=== PATIENT | female | born 1990 | race Caucasian/White ===

== ENCOUNTER → 2019-05-19 14:24 | Observation (INO) ==
[2019-05-19 12:58] LABS: Basophils % 0.2 %; Eosinophils # 0.1 K/mcL (0.0-0.6); Eosinophils % 0.9 %; Hematocrit 37.6 % (35.3-44.9); Hemoglobin 12.9 g/dL (11.5-15.4); Immature Granulocytes % 0.5 % (0-4); Lymphocytes # 1.8 K/mcL (0.6-4.6); Lymphocytes % 17.6 %; Mean Corpuscular HGB Conc 34.3 g/dL (31.6-35.5); Mean Corpuscular Volume 90.4 fL (83.0-100.0); Mean Platelet Volume 11.5 fL (9.4-12.4); Monocytes # 0.5 K/mcL (0.0-1.3); Monocytes % 5.3 %; Neutrophils # 7.5 K/mcL (1.6-8.9); Platelet Count 205 K/mcL (140-400); Red Blood Count 4.16 M/mcL (3.82-4.97); Red Cell Distribution Width 12.8 % (11.5-14.5); Segmented Neutrophils % 75.5 %; White Blood Count 9.9 K/mcL (4.3-11.1)
[2019-05-19 13:16] LABS: Alanine Aminotransferase 10 Units/L (7-52); Aspartate Amino Transferase 13 Units/L (13-39); BUN/Creatinine Ratio 11 (6-26); Blood Urea Nitrogen 7 mg/dL (6-20); Lactate Dehydrogenase 127 Units/L (140-271); Uric Acid 4.6 mg/dL (2.3-7.6); eGFR For African Americans > 60 (> 60); eGFR For Non-African Americans > 60 (> 60)
[2019-05-19 13:33] LABS: Protein/Creatinine Ratio,Urine 0.08 mg/mg (0.00-0.20)
== END | disposition home or self-care (01) ==
LOC: 1NENULAB
PROVIDERS: ADMIT Registered Nurse; ATTEND Registered Nurse

== ENCOUNTER 2019-06-19 15:19 | Observation (INO) ==
[2019-06-19 12:42] LABS: Basophils % 0.2 %; Eosinophils # 0.1 K/mcL (0.0-0.6); Eosinophils % 1.3 %; Hematocrit 39.6 % (35.3-44.9); Hemoglobin 13.8 g/dL (11.5-15.4); Immature Granulocytes % 0.8 % (0-4); Lymphocytes % 18.7 %; Mean Corpuscular HGB Conc 34.8 g/dL (31.6-35.5); Mean Corpuscular Hemoglobin 30.9 pg (28.0-33.3); Mean Corpuscular Volume 88.6 fL (83.0-100.0); Mean Platelet Volume 11.9 fL (9.4-12.4); Monocytes # 0.6 K/mcL (0.0-1.3); Monocytes % 5.5 %; Neutrophils # 7.8 K/mcL (1.6-8.9); Platelet Count 213 K/mcL (140-400); Red Blood Count 4.47 M/mcL (3.82-4.97); Red Cell Distribution Width 12.5 % (11.5-14.5); Segmented Neutrophils % 73.5 %; White Blood Count 10.6 K/mcL (4.3-11.1)
[2019-06-19 12:59] LABS: Alanine Aminotransferase 9 Units/L (7-52); Amphetamine Screen,Urine Negative ng/mL (Cutoff=1000); Aspartate Amino Transferase 13 Units/L (13-39); BUN/Creatinine Ratio 12 (6-26); Barbiturate Screen,Urine Negative ng/mL (Cutoff=200); Benzodiazepines Screen,Urine Negative ng/mL (Cutoff=200); Blood Urea Nitrogen 6 mg/dL (6-20); Cannabinoid Screen,Urine Negative ng/mL (Cutoff = 50); Cocaine Screen,Urine Negative ng/mL (Cutoff= 300); Creatinine,Urine 47 mg/dL; Lactate Dehydrogenase 135 Units/L (140-271); Opiate Screen,Urine Negative ng/mL (Cutoff=300); Phencyclidine Screen,Urine Negative ng/mL (Cutoff=25); Protein/Creatinine Ratio,Urine 0.13 mg/mg (0.00-0.20); Uric Acid 4.5 mg/dL (2.3-7.6); eGFR For African Americans > 60 (> 60); eGFR For Non-African Americans > 60 (> 60)
--- NOTE | 2019-06-19 15:15 | OB/GYN History & Physical ---
Date of Encounter: 06/19/19 Time of Encounter: 15:00 Assessment and Plan (1) 30 weeks gestation of Current visit: Yes Status: Acute Admit for observation of labor NST q shift BP q4 hours and PRN HTN symptoms may do q 6 hours overnight if BP stable Discharge likely tomorrow after second steroid administration at 1325 (2) Gestational hypertension affecting third Current visit: Yes Status: Acute Start labetalol 200 mg BID (3) History of pre-eclampsia in prior , currently in third trimester Current visit: Yes Status: Acute History of Present Illness Chief complaint: elevated BP HPI: Ms. Rivera is a 28 year old female who presents with c/o MILLER since Thursday unrelieved by tylenol. She reports home blood pressures of 130's/80's on Thursday, 140's/90's on Thursday, and 160's/90's today. She reports MILLER has continued since this time. She endorses good fm and denies lof, vb, ctx. She has a history of a delivery s/t severe preeclampsia at 29 weeks via . Labs: O+ GBS unknown Hep B- HIV- T. Pall- Varicella immune Rubella immune Past Med Surg Social Fam HX - Past Medical History Medical history: no medical history Psychiatric history: no psych history - Past Surgical History Surgical History: - Social History Smoking Status: Never smoker Smokeless Tobacco Status: No Alcohol use: none Drug use: none - Family History Mother Living Status: Still Living Hx Family Cardiac Disorders: Yes (HTN) Obstetrical History - Pregnancies : 3 Para: 1 Term: 0 : 1 Ab's: 1 Livin Medications and Allergies Aspirin 81 mg PO DAILY 05/19/19 [History] Vit #108/Iron/FA [ One Tablet] 1 each PO DAILY 05/19/19 [History] Allergy/AdvReac Type Severity Reaction Status Date / Time No Known Allergies Allergy Verified 06/19/19 12:21 Review of System OB All systems PM: reviewed and no additional remarkable complaints except as stated Exam - Constitutional Constitutional: well developed, well nourished, mild distress, obese - HEENT HEENT: PERRL, Normocephaly, Mucus Membranes Moist - Neck Neck exam: full ROM - Lungs Respiratory exam: CTAB - Cardiovascular Cardiovascular exam: RRR, +S1, +S2 - Breasts Breast: left: normal - Abdomen Abdomen: Present: bowel sounds normal, gravid, non tender - Extremities Extremities exam: full ROM, normal capillary refill, normal inspection, radial pulses palpable and symmetrical - Vulva Vulva: left: normal - Vagina Vagina: Present: normal moisture - Uterus Uterus exam: Present: normal size, normal contour - Adnexa Adnexa: left: normal - Anus/Rectum Anus/Rectum: Present: normal perianal skin Results Result Diagrams: 06/19/19 12:26 06/19/19 12:26 Abnormal lab results Creatinine 0.52 mg/dL (0.60-1.20) L 06/19/19 12: Lactate Dehydrogenase 135 Units/L (140-271) L 06/19/19 12:26 All other labs normal. - VTE Reasons for not Prescribing Prophylaxis: Treatment not Indicated - Low risk for VTE
[~2019-06-19 15:19] MED LIST: *HR* Labetalol 20 MG/4 ML SYRINGE IVP ONE; Betamethasone Acet/SodPhos 30 MG/5 ML VIAL IM SCH
--- NOTE | 2019-06-20 08:57 | Discharge Summary ---
Date of Encounter: 06/20/19 Time of Encounter: 08:57 - Discharge Diagnosis (1) 31 weeks gestation of Priority: Primary Status: Acute Comments: 28 y/o @ 31 weeks, GHTN (on labetalol 200mg BID) h/o prior @ 29 weeks, h/o preeclampsia with severe features Plan: I reviewed her BP and they are in the normal range, her labs are also normal, her BMZ# 2 is due @ 1:30PM today and after that she can be discharged, She'll see Dr Mueller tomorrow for NST/visit and Thursday for NST read only (i.e 2/wk visits) Still awaiting records from [facility], if it shows clasical c section, delivery will be at 36 weeks, if not, 37 weeks unless her clinical status changes. - Discharge Medications Prescriptions: No Action Aspirin 81 mg PO DAILY Vit #108/Iron/FA [ One Tablet] 1 each PO DAILY Home Medications: Aspirin 81 mg PO DAILY 05/19/19 [History] Vit #108/Iron/FA [ One Tablet] 1 each PO DAILY 05/19/19 [History] Allergies/Adverse Reactions: Allergy/AdvReac Type Severity Reaction Status Date / Time No Known Allergies Allergy Verified 06/19/19 12:21 Data Procedures and tests throughout hospitalization: Laboratory Tests 06/19/19 06/19/19 06/19/19 12:26 12:26 12:26 WBC 10.6 RBC 4.47 Hgb 13.8 Hct 39.6 MCV 88.6 MCH 30.9 MCHC 34.8 RDW 12.5 Plt Count 213 MPV 11.9 Immature Gran % 0.8 Seg Neutrophils % 73.5 Lymphocytes % 18.7 Monocytes % 5.5 Eosinophils % 1.3 Basophils % 0.2 Neutrophils # 7.8 Lymphocytes # 2.0 Monocytes # 0.6 Eosinophils # 0.1 Basophils # 0.0 BUN 6 Creatinine 0.52 L Est GFR ( Amer) > 60 Est GFR (Non-Af Amer) > 60 BUN/Creatinine Ratio 12 Uric Acid 4.5 AST 13 ALT 9 Lactate Dehydrogenase 135 L Urine Creatinine 47 Protein/Creatinin Ratio 0.13 Urine Total Protein 6 Urine Opiates Screen Negative Ur Buprenorphine Scrn Negative Ur Barbiturates Screen Negative Ur Phencyclidine Scrn Negative Ur Amphetamines Screen Negative U Benzodiazepines Scrn Negative Urine Cocaine Screen Negative U Marijuana (THC) Screen Negative Ur Drug Screen Interp See Below Labs on day of discharge: Labs from last 24 hours 06/19/19 06/19/19 06/19/19 12:26 12:26 12:26 WBC 10.6 RBC 4.47 Hgb 13.8 Hct 39.6 MCV 88.6 MCH 30.9 MCHC 34.8 RDW 12.5 Plt Count 213 MPV 11.9 Immature Gran % 0.8 Seg Neutrophils % 73.5 Lymphocytes % 18.7 Monocytes % 5.5 Eosinophils % 1.3 Basophils % 0.2 Neutrophils # 7.8 Lymphocytes # 2.0 Monocytes # 0.6 Eosinophils # 0.1 Basophils # 0.0 BUN 6 Creatinine 0.52 L Est GFR ( Amer) > 60 Est GFR (Non-Af Amer) > 60 BUN/Creatinine Ratio 12 Uric Acid 4.5 AST 13 ALT 9 Lactate Dehydrogenase 135 L Urine Creatinine 47 Protein/Creatinin Ratio 0.13 Urine Total Protein 6 Urine Opiates Screen Negative Ur Buprenorphine Scrn Negative Ur Barbiturates Screen Negative Ur Phencyclidine Scrn Negative Ur Amphetamines Screen Negative U Benzodiazepines Scrn Negative Urine Cocaine Screen Negative U Marijuana (THC) Screen Negative Ur Drug Screen Interp See Below Date of admission: 06/19/19 11:39 - Patient Status Disposition: Home, Self-Care Condition: Good Functional capacity at discharge: independent ambulation Overall status at discharge: patient is progressing back to baseline (discharge after BMZ#2 @ 1:30) - Discharge Instructions Hospital Course CHIEF II DISPATCHER Time Attestation: Total time spent providing and/or coordinating discharge services: Exam - Constitutional Vitals: Temp Pulse Resp BP Pulse Ox 97.7 F 77 14 138/79 96 06/20/19 07:44 06/20/19 07:44 06/20/19 07:44 06/20/19 07:44 06/20/19 07:44 General appearance IM: A&O X 3 - Respiratory Respiratory exam: Present: CTAB - Cardiovascular Cardiovascular exam IM: Present: RRR - GI/Abdominal GI/Abdominal exam IM: soft (gravid) - VTE Reasons for not Prescribing Prophylaxis: Treatment not Indicated - Low risk for VTE
[2019-06-20] MEDS ORDERED: Prenatal Vit/FA 1 EACH TABLET PO SCH (09:00)
[2019-06-20] MEDS ORDERED: Aspirin 81 MG TAB.CHEW PO SCH (09:00)
[2019-06-20 11:39] VITALS: BP 125/76
[2019-06-20] MEDS ORDERED: Betamethasone Acet/SodPhos 30 MG/5 ML VIAL IM SCH (13:25)
== END 2019-06-20 13:50 | disposition home or self-care (01) ==
LOC: 1NENUNUR → 1NENULAB → 1NENUOBS 15:19
PROVIDERS: ADMIT Advanced Practice Midwife; ATTEND Advanced Practice Midwife

== ENCOUNTER 2019-07-18 00:19 | Inpatient (IN) ==
[2019-07-17 23:53] LABS: Basophils % 0.2 %; Eosinophils # 0.1 K/mcL (0.0-0.6); Eosinophils % 1.1 %; Hematocrit 36.9 % (35.3-44.9); Hemoglobin 13.1 g/dL (11.5-15.4); Lymphocytes % 24.3 %; Mean Corpuscular HGB Conc 35.5 g/dL (31.6-35.5); Mean Corpuscular Hemoglobin 31.3 pg (28.0-33.3); Mean Corpuscular Volume 88.1 fL (83.0-100.0); Mean Platelet Volume 12.3 fL (9.4-12.4); Monocytes # 0.7 K/mcL (0.0-1.3); Monocytes % 5.9 %; Neutrophils # 8.4 K/mcL (1.6-8.9); Platelet Count 187 K/mcL (140-400); Red Blood Count 4.19 M/mcL (3.82-4.97); Red Cell Distribution Width 12.4 % (11.5-14.5); Segmented Neutrophils % 67.5 %; White Blood Count 12.4 K/mcL (4.3-11.1)
[2019-07-17 23:57] LABS: Protein/Creatinine Ratio,Urine 0.12 mg/mg (0.00-0.20)
[2019-07-17 23:58] LABS: Amphetamine Screen,Urine Negative ng/mL (Cutoff=1000); Barbiturate Screen,Urine Negative ng/mL (Cutoff=200); Benzodiazepines Screen,Urine Negative ng/mL (Cutoff=200); Cannabinoid Screen,Urine Negative ng/mL (Cutoff = 50); Cocaine Screen,Urine Negative ng/mL (Cutoff= 300); Opiate Screen,Urine Negative ng/mL (Cutoff=300); Phencyclidine Screen,Urine Negative ng/mL (Cutoff=25)
[2019-07-18 00:08] LABS: Alanine Aminotransferase 8 Units/L (7-52); Aspartate Amino Transferase 14 Units/L (13-39); BUN/Creatinine Ratio 12 (6-26); Blood Urea Nitrogen 7 mg/dL (6-20); Lactate Dehydrogenase 144 Units/L (140-271); Uric Acid 5.5 mg/dL (2.3-7.6); eGFR For African Americans > 60 (> 60); eGFR For Non-African Americans > 60 (> 60)
[~2019-07-18 00:19] MED LIST changes: -Betamethasone Acet/SodPhos 30 MG/5 ML VIAL IM SCH; +CeFAZolin Premix DUPLEX 2,000 MG/50 ML BAG IVPB ONE; +Famotidine 20 MG/2 ML VIAL IVP ONE; +Metoclopramide 10 MG/2 ML VIAL IVP ONE; +Ringers Solution, Lactated 1,000 ML IVC SCH; +Ringers Solution, Lactated 1,000 ML ONE
[2019-07-18] MEDS ORDERED: *HR* Morphine Sulfate/PF 10 MG/10 ML AMPUL ONE (00:28)
[2019-07-18] MEDS ORDERED: *HR* FentaNYL (PF) 100 MCG/2 ML VIAL ONE (00:29)
[2019-07-18] MEDS ORDERED: Ringers Solution, Lactated 1,000 ML IVC SCH (00:30)
[2019-07-18] MEDS ORDERED: *HR* Oxytocin 10 UNIT/ML VIAL IM ONE ×2 (00:30→01:34)
[2019-07-18] MEDS ORDERED: Oxytocin 20 units/ LR 1000 mL 20 UNIT/1,000 ML BAG IVC SCH (00:30)
[2019-07-18] MEDS ORDERED: *HR* Phenylephrine 10 MG/ML VIAL ONE (00:32)
--- NOTE | 2019-07-18 00:55 | OB/GYN History & Physical ---
Date of Encounter: 07/18/19 Time of Encounter: 00:50 Assessment and Plan (1) Gestational hypertension affecting third Current visit: No Status: Acute (2) History of pre-eclampsia in prior , currently in Current visit: No Status: Acute (3) 35 weeks gestation of Current visit: Yes Status: Acute History of Present Illness Chief complaint: elevated BP HPI: Ms. Rivera is a 28 year old female at 35 weeks gestation who presented to labor and delivery with elevated blood pressures. On presentation patient blood pressure was 189/101. Repeat blood pressures were on same range. Patient given an extra dose of labetalol 20 mg IV blood pressure went to 185/95. Because of this patient was taken for section today. Patient currently takes labetalol 300 mg twice a day. She denies any other complaints today. There are no issues with her breasts. She denies gynecologic infection or discharge. She is having no bleeding. There are no issues with her bowels or bladder. She has no drug allergies. She is currently on no other medications other than vitamins and labetalol. Chronic medical conditions are none. Surgical history includes 1 section at 29 weeks. Obstetric history significant for one previous section this complicated by preeclampsia. Family history is significant for diabetes Past Med Surg Social Fam HX - Past Medical History Medical history: no medical history Psychiatric history: no psych history - Past Surgical History Surgical History: - Social History Smoking Status: Never smoker Smokeless Tobacco Status: No Alcohol use: none Drug use: none - Family History Mother Living Status: Still Living Hx Family Cardiac Disorders: Yes (HTN) Hx Family Respiratory Disorders: No Hx Family Cancer: No Hx Family GI Disorders: No Hx Family Genitourinary Disorders: No Hx Family Endocrine Disorder: No Hx Family Musculoskeletal Disorders: No Hx Family Neuromuscular Disorders: No Hx Family Neurologic Disorders: No Hx Family HEENT Disorders: No Hx Family Autoimmune Disorders: No Hx Family Reproductive Disorders: No Hx Family Psychosocial Disorders: No Hx Family Medical Disorders: No Obstetrical History - Pregnancies : 3 Para: 1 Term: 0 : 1 Ab's: 1 Livin Medications and Allergies Aspirin 81 mg PO DAILY 05/19/19 [History] Vit 108/Iron/Folic AC [ One Tablet] 1 each PO DAILY 05/19/19 [History] Labetalol [Trandate] 300 mg PO BID 07/17/19 [History] Allergy/AdvReac Type Severity Reaction Status Date / Time No Known Allergies Allergy Verified 06/19/19 12:21 Review of System OB All systems PM: reviewed and no additional remarkable complaints except as stated Exam - Vital Signs Vital signs: Initial Vital Signs Pulse Resp BP 55 15 189/101 07/17/19 23:15 07/17/19 23:15 07/17/19 23:15 - Constitutional Constitutional: well developed, well nourished, average body habitus - HEENT HEENT: EOMI, PERRL, Normocephaly - Neck Neck exam: full ROM, normal inspection - Lungs Respiratory exam: CTAB - Cardiovascular Cardiovascular exam: RRR - Abdomen Abdomen: Present: bowel sounds normal, gravid, non tender - Extremities Extremities exam: full ROM, normal inspection - Vagina Vagina: Present: normal moisture Results Result Diagrams: 07/17/19 23:31 07/17/19 23:31 Abnormal lab results WBC 12.4 K/mcL (4.3-11.1) H 07/17/19 23:31 Creatinine 0.57 mg/dL (0.60-1.20) L 07/17/19 23:31 Urine Total Protein 18 mg/dL (1-14) H 07/17/19 23:31 All other labs normal. - VTE Reasons for not Prescribing Prophylaxis: Treatment not Indicated - Low risk for VTE
[2019-07-18] MEDS ORDERED: Azithromycin 500 MG in 0.9 % Sodium Chloride 250 ML IVPB SCH (01:00)
[2019-07-18] MEDS ORDERED: Ringers Solution, Lactated 1,000 ML ONE ×2 (01:03→01:42)
--- NOTE | 2019-07-18 01:33 | Anesthesia Evaluation PreOp ---
Date of Encounter: 07/18/19 Time of Encounter: 00:45 - Past History Planned Operation: Repeat + BPS Cardiac History: HTN (uncontrolled PIH) Pulmonary History: Denies Any Significant HX COPY COORDINATOR History: Denies Any Significant HX Other Medical History: Denies Any Significant HX Anesthesia History: No Prior Anesthetic Complications (never had GA; denies family h/o GA complications), Past Anesthesia (CLEx1--no issues) : Yes Alcohol Use: none Drug use: none Medications and Allergies Aspirin 81 mg PO DAILY 05/19/19 [History] Vit 108/Iron/Folic AC [ One Tablet] 1 each PO DAILY 05/19/19 [History] Labetalol [Trandate] 300 mg PO BID 07/17/19 [History] Allergy/AdvReac Type Severity Reaction Status Date / Time No Known Allergies Allergy Verified 06/19/19 12:21 - Meds/Allergy Pre-op Review Medications Reviewed: Yes Allergies Reviewed: Yes Beta Blockers on Current Med List: Yes If Beta Blockers taken, Date/Time (Last Dose taken): 07/17/2019 @1999 Anesthesia Results - Labs 07/17/19 23:31 07/17/19 23:31 Anesthesia Exam O2 Sat Height 1.7 m Weight 98.9 kg Vital Signs Pulse Resp BP 55 15 189/101 07/17/19 23:15 07/17/19 23:15 07/17/19 23:15 NPO (# of Hours): solids > 6hrs Pain Scale: 0 Pain Scale Used: Numeric (1 - 10) - HEENT Pupil (Motor): Pupils equal Mallampati: III Teeth: Normal Oral Opening: Greater than 3 - COPY COORDINATOR LOC: Oriented COPY COORDINATOR Motor: Normal RUE, Normal LUE, Normal RLE, Normal LLE, Normal Face COPY COORDINATOR Sensory: Normal: RUE, LUE, RLE, LLE, Face - Cardiac Rhythm: Regular Murmur: None - Pulmonary Breath Sounds: bilateral Clear Respiratory Effort: Symmetrical Anesthesia Assess/Plan ASA Score: 2 Level of consciousness: Cooperative, Oriented, Tranquil Anesthetic Plan: Spinal Autologous Blood: No Monitoring Plan: Standard Monitors Recovery Plan: PACU
--- NOTE | 2019-07-18 01:35 | Anesthesia Procedures ---
Date of Encounter: 07/18/19 Time of Encounter: 01:11 Procedures: Anesthesia - Epidural/Spinal Patient ID/Chart reviewed: Yes Patient examined: Yes OB Eval: Gestational age: 35 weeks OB Eval: : 3 OB Eval: Hx Para: 1 OB Eval: Contractions: Non-stressed pattern Consent Obtained: Yes Supplemental Oxygen: None/Room Air Site Prep: Aseptic Technique, Sterile prep and drape, 0.5% Chlorhexidine/Alcohol Patient position: upright Local Anesthetic: Lidocaine 1% Amount of Local Anesthetic used: 3 Interspace Used: L3-L4 Loss of Resistance (PRO): No Blood: No CSF: Yes Paresthesia: No Spinal Needle Gauge: 25 (3.5" pencan needle) Spinal Dose: see anesthesia record Procedure: successful on 1st attempt; patient tolerated procedure well; VSS Vitals + FHT's: see anesthesia record
[2019-07-18] MEDS ORDERED: Ondansetron 4 MG/2 ML VIAL ONE (01:36)
[2019-07-18] MEDS ORDERED: *HR* Promethazine 25 MG/ML VIAL ONE (01:37)
[2019-07-18] MEDS ORDERED: *HR* HYDROmorphone (PF) 1 MG/ML SYRINGE IVP PRN (02:08)
[2019-07-18] MEDS ORDERED: Ondansetron 4 MG/2 ML VIAL IVP PRN ×2 (02:08→07:26)
[2019-07-18] MEDS ORDERED: Acetaminophen IV 1,000 MG/100 ML INFUS..BTL IVPB ONE (02:08)
[2019-07-18] MEDS ORDERED: Naloxone 0.4 MG/ML INJ IVP PRN ×2 (02:08→07:26)
--- NOTE | 2019-07-18 02:22 | OB/GYN Procedure Note ---
Section - Date of procedure: 07/18/19 Preop diagnosis: desires sterilization, other (uncontrolled gestational hypertension) Post-op diagnosis: same Procedure: repeat low transverse, bilateral tubal ligation Surgeon: Heath Teran Blood Loss: 500 Was there an machine operator assistant present: Yes Engineering Clerk: Ludmila Shankar Machine Spreader: Brent Santiago Anesthesia Type: Spinal section complications: none Disposition: PACU Specimens: Placenta, Right tube segment, Left tube segment - (s) A Infant Delivery Date: 07/18/19 Infant Delivery Time: Presentation: vertex Position: OA Route of delivery: other Gender: Female Viability: Viable Pounds: 4 Ounces: 4 Gram Weight: 1.925 kg at 1 minute: 8 at 5 minutes: 9 Specimens collected: cord blood Placenta: partial extraction Cord: 3 umbilical vessels - Narrative Narrative: Patient presented to labor and delivery complaining of elevated blood pressures. She had a slight headache on arrival. Patient states that this is similar to her last . She remained asymptomatic until her pressure skyrocketed. On presentation today blood pressures in the 180s to 190s over 110s. A she had taken her blood pressure medication today. She was given IV labetalol with no decrease in blood pressures. Patient had been given steroids earlier in this . Because of the blood pressures with no response to antihypertensive the decision was made to proceed with section. Informed consent was obtained. Patient was taken to the operating room. She was given a spinal anesthesia. This then brought her blood pressures down nicely. She was then prepped and draped in the usual sterile fashion. Once adequate analgesia was achieved a Pfannenstiel incision was made through patient's previous scar. Was carried sharply through the subtenons fatty tissue until the fascial layers reached. The fascia was then nicked in the midline and incised bilaterally with Campbell scissors. It was then dissected vertically for adequate exposure. The rectus abdominis musculature was severed the midline. The peritoneum sharply entered dissected vertically. A bladder blade was placed at the inferior margin of the incision. The bladder flap was then developed without difficulty. A bladder blade was placed over the bladder flap and a low transverse incision was then made in the lower uterine segment. Fluid was noted be clear. The infant was easily delivered. The cried immediately upon delivery. The cord was clamped and cut and the was passed to NICU team in attendance. Cord blood was obtained. The placenta was then delivered via uterine lavage and massage. The uterine incision was then closed the Vicryl suture running locking fashion. One [id number] was placed for final hemostasis. At this time the tubal ligation was performed. The right fallopian tube was located and followed to the fimbriated end. The midportion tubes and grasped. An avascular portion of the salpinx was located. Through this a piece of open suture was then placed time both the proximal distal portion of tube. A second piece of open sutures was then placed time with edges together. The knuckle portion of tube was removed and the edges cauterized. The same procedure was then performed on the left fallopian tube. The tube was followed to the fimbriated end. The midportion of the tube was grasped, and a piece of o-plain suture was then placed through the avascular portion of the mesosalpinx. Through this a piece of open sutures and placed time with the proximal distal portion of tube. A second piece of open suture was then placed time both edges together. The knuckle portion of tube was removed and the edges were cauterized. With this being done the uterus was replaced in the pelvic cavity. The pelvic cavity was rinsed thoroughly with sterile water 2. Seeing no bleeding the procedure was terminated. Sponge, needle, and instrument count correct 2. The fascia was then closed with O Vicryl suture in a running nonlocking fashion. The suprafascial region was rinsed thoroughly with sterile water 2. The skin was then closed with 4 Vicryl suture in subcuticular fashion. Patient tolerated the procedure well. Blood loss 500 mL finding is a female infant weight was 4 lbs. 4 oz., 1925 g. Apgars of 8 at 1 minute and 9 at 5 minutes.
--- NOTE | 2019-07-18 02:33 | Anesthesia Evaluation Post Op ---
Date of Encounter: 07/18/19 Time of Encounter: 02:32 - Vital Signs Vital Signs: HR 142/98, HR 76, SpO2 94%, T98.2F, RR16 - Lungs Lungs: Clear Ascult./Percussion - Airway Airway: Non-obstructed - Cardiovascular Regular Rate - Mental Status Mental Status: Alert & Oriented, Answers Appropriately - Pain Pain Scale: 0 Pain Scale used: Numeric (1 - 10) - Nausea Vomiting Nausea Vomiting: Not Present - Hydration Hydration: NPO, Orozco catheter - Discharge PostOp Status: Transfer Patient to floor
[2019-07-18] MEDS ORDERED: NIFEdipine XL (24 HR) 60 MG TAB.ER.24 PO ONE (03:21)
[2019-07-18] MEDS ORDERED: Sennosides 8.6 MG TABLET PO PRN (07:26)
[2019-07-18] MEDS ORDERED: *HR* OxyCODONE/APAP 5/325 TABLET PO PRN (07:26)
[2019-07-18] MEDS ORDERED: Metoclopramide 10 MG/2 ML VIAL IVP PRN (07:26)
[2019-07-18] MEDS ORDERED: Calcium Gluconate 1,000 MG/10 ML VIAL IVPB PRN (08:03)
--- NOTE | 2019-07-18 08:06 | OB/GYN Progress Note ---
Date of Encounter: 07/18/19 Time of Encounter: 07:50 - Assessment and Plan (1) Severe pre-eclampsia Current Visit: Yes Status: Acute Patient is now without symptoms. Continued severe range blood pressures and hyper-refelxia. Begin Magnesium Sulfate for seizure prophylaxis and continue for 24 hours. Patient is aware. She had this with her first and delivery. All questions answered. Qualifiers: Trimester: unspecified trimester Qualified Code(s): O14.10 - Severe pre- eclampsia, unspecified trimester (2) Status post repeat low transverse section Current Visit: Yes Status: Acute Subjective - Subjective Principal diagnosis: s/p c-scection repeat for severe pre-eclampsia Interval history: Patient denies any concerns or needs at this time. She denies headache, visual changes, or RUQ pain. Patient reports: pain well controlled, no nauseated : doing well Objective - Vital Signs Latest vital signs: Vital Signs Temp Pulse Resp BP Pulse Ox 07/18/19 06:45 98.3 F 75 14 149/99 96 07/18/19 06:13 97.7 F 83 14 149/102 95 07/18/19 05:15 98.3 F 71 14 139/92 97 07/17/19 23:15 55 15 189/101 Intake and Output 07/17/19 07/18/19 07/18/19 23:59 07:59 15:59 Other: Weight 98.9 kg - Exam Lungs: bilateral: normal Chest: Normal S1, Normal S2 Extremities: Present: normal. Absent: tenderness Comments: Extremeties with +3/4 patellar reflexes. No clonus, however patient is guarding and helping with exam - Labs Labs: Laboratory Results - last 24 hr 07/17/19 07/17/19 07/17/19 23:31 23:31 23:31 WBC 12.4 H RBC 4.19 Hgb 13.1 Hct 36.9 MCV 88.1 MCH 31.3 MCHC 35.5 RDW 12.4 Plt Count 187 MPV 12.3 Immature Gran % 1.0 Seg Neutrophils % 67.5 Lymphocytes % 24.3 Monocytes % 5.9 Eosinophils % 1.1 Basophils % 0.2 Neutrophils # 8.4 Lymphocytes # 3.0 Monocytes # 0.7 Eosinophils # 0.1 Basophils # 0.0 BUN 7 Creatinine 0.57 L Est GFR ( Amer) > 60 Est GFR (Non-Af Amer) > 60 BUN/Creatinine Ratio 12 Uric Acid 5.5 AST 14 ALT 8 Lactate Dehydrogenase 144 Urine Creatinine 152 Protein/Creatinin Ratio 0.12 Urine Total Protein 18 H Urine Opiates Screen Ur Buprenorphine Scrn Ur Barbiturates Screen Ur Phencyclidine Scrn Ur Amphetamines Screen U Benzodiazepines Scrn Urine Cocaine Screen U Marijuana (THC) Screen Ur Drug Screen Interp 07/17/19 23:31 WBC RBC Hgb Hct MCV MCH MCHC RDW Plt Count MPV Immature Gran % Seg Neutrophils % Lymphocytes % Monocytes % Eosinophils % Basophils % Neutrophils # Lymphocytes # Monocytes # Eosinophils # Basophils # BUN Creatinine Est GFR ( Amer) Est GFR (Non-Af Amer) BUN/Creatinine Ratio Uric Acid AST ALT Lactate Dehydrogenase Urine Creatinine Protein/Creatinin Ratio Urine Total Protein Urine Opiates Screen Negative Ur Buprenorphine Scrn Negative Ur Barbiturates Screen Negative Ur Phencyclidine Scrn Negative Ur Amphetamines Screen Negative U Benzodiazepines Scrn Negative Urine Cocaine Screen Negative U Marijuana (THC) Screen Negative Ur Drug Screen Interp See Below
[2019-07-18] MEDS: ceFAZolin 2,000 MG in 0.9 % Sodium Chloride 100 ML IVP SCH ×2 (08:42→16:14)
[2019-07-18] MEDS: metroNIDAZOLE 500 MG TABLET PO SCH ×2 (08:43→20:41)
[2019-07-18] MEDS: Prenatal Vit/FA 1 EACH TABLET PO SCH (08:43)
[2019-07-18] MEDS: Magnesium Sulfate 20 gm/500mL 20 GM/500 ML IV.SOLN IVC SCH ×2 (09:34→19:24)
[2019-07-18 11:05] LABS: Basophils % 0.2 %; Eosinophils # 0.1 K/mcL (0.0-0.6); Eosinophils % 0.8 %; Hematocrit 37.5 % (35.3-44.9); Immature Granulocytes % 0.7 % (0-4); Lymphocytes # 2.6 K/mcL (0.6-4.6); Lymphocytes % 19.7 %; Mean Corpuscular HGB Conc 34.7 g/dL (31.6-35.5); Mean Corpuscular Hemoglobin 31.3 pg (28.0-33.3); Mean Corpuscular Volume 90.1 fL (83.0-100.0); Mean Platelet Volume 12.3 fL (9.4-12.4); Monocytes # 0.7 K/mcL (0.0-1.3); Monocytes % 5.5 %; Neutrophils # 9.7 K/mcL (1.6-8.9); Platelet Count 160 K/mcL (140-400); Red Blood Count 4.16 M/mcL (3.82-4.97); Red Cell Distribution Width 12.6 % (11.5-14.5); Segmented Neutrophils % 73.1 %; White Blood Count 13.3 K/mcL (4.3-11.1)
[2019-07-18 11:25] LABS: Alanine Aminotransferase 7 Units/L (7-52); Aspartate Amino Transferase 20 Units/L (13-39); BUN/Creatinine Ratio 10 (6-26); Blood Urea Nitrogen 6 mg/dL (6-20); Lactate Dehydrogenase 184 Units/L (140-271); Uric Acid 5.5 mg/dL (2.3-7.6); eGFR For African Americans > 60 (> 60); eGFR For Non-African Americans > 60 (> 60)
[2019-07-18] MEDS: Oxytocin 20 units/ LR 1000 mL 20 UNIT/1,000 ML BAG IVC SCH (13:06)
[2019-07-18] MEDS: Simethicone 80 MG TAB.CHEW PO PRN (20:42)
[2019-07-18] MEDS: Ibuprofen 600 MG TABLET PO PRN (20:42)
[2019-07-19] MEDS: ceFAZolin 2,000 MG in 0.9 % Sodium Chloride 100 ML IVP SCH (00:48)
[2019-07-19] MEDS: Oxytocin 20 units/ LR 1000 mL 20 UNIT/1,000 ML BAG IVC SCH (00:49)
[2019-07-19] MEDS: Magnesium Sulfate 20 gm/500mL 20 GM/500 ML IV.SOLN IVC SCH (05:14)
[2019-07-19] MEDS: Ibuprofen 600 MG TABLET PO PRN ×2 (05:25→20:18)
[2019-07-19 06:46] LABS: Basophils % 0.2 %; Eosinophils # 0.1 K/mcL (0.0-0.6); Eosinophils % 1.1 %; Hematocrit 37.5 % (35.3-44.9); Immature Granulocytes % 0.5 % (0-4); Lymphocytes # 2.4 K/mcL (0.6-4.6); Lymphocytes % 21.7 %; Mean Corpuscular HGB Conc 34.7 g/dL (31.6-35.5); Mean Corpuscular Hemoglobin 31.3 pg (28.0-33.3); Mean Corpuscular Volume 90.4 fL (83.0-100.0); Mean Platelet Volume 11.6 fL (9.4-12.4); Monocytes # 0.7 K/mcL (0.0-1.3); Monocytes % 6.7 %; Neutrophils # 7.6 K/mcL (1.6-8.9); Platelet Count 177 K/mcL (140-400); Red Blood Count 4.15 M/mcL (3.82-4.97); Red Cell Distribution Width 12.7 % (11.5-14.5); Segmented Neutrophils % 69.8 %
[2019-07-19] MEDS: Prenatal Vit/FA 1 EACH TABLET PO SCH (08:36)
[2019-07-19] MEDS: metroNIDAZOLE 500 MG TABLET PO SCH ×2 (08:36→20:18)
--- NOTE | 2019-07-19 09:43 | OB/GYN Progress Note ---
Date of Encounter: 07/19/19 Time of Encounter: 09:40 - Assessment and Plan (1) Severe pre-eclampsia Current Visit: Yes Status: Acute Collaboration with Dr. Stearns the physician steam conditioner operator today Will continue Labetalol 300mg po BID Magnesium now discontinued De Le[place] catheter to be removed Qualifiers: Trimester: unspecified trimester Qualified Code(s): O14.10 - Severe pre- eclampsia, unspecified trimester (2) Status post repeat low transverse section Current Visit: Yes Status: Acute Continue routine postop/ care (3) Breast feeding status of mother Current Visit: Yes Status: Acute continue support prn Subjective - Subjective Principal diagnosis: Postop day 1 repeat c/s for severe BP Interval history: Patient is postop day 1 repeat c/s. Magnesium sulfate was just discontinued, de león catheter draining clear yellow urine. Patient is breast feeding. She reports passing flatus. Patient reports: appetite normal, pain well controlled, other (de león still draining, magnesium just discontinued) [place]: doing well, nursing well Objective - Vital Signs Latest vital signs: Vital Signs Temp Pulse Resp BP Pulse Ox 07/19/19 08:30 86 14 131/82 07/19/19 07:30 97.6 F 89 14 137/79 96 07/19/19 05:25 97.7 F 84 14 120/65 95 07/19/19 04:30 85 14 119/69 07/19/19 03:35 86 14 121/68 07/19/19 02:30 89 14 118/69 07/19/19 01:30 87 14 128/71 07/19/19 00:30 84 14 111/66 07/18/19 23:30 97.9 F 82 14 110/59 95 07/18/19 22:30 92 14 126/70 07/18/19 21:25 98.1 F 84 16 126/73 95 07/18/19 20:20 98.0 F 90 14 134/80 96 07/18/19 19:20 98.1 F 92 14 122/70 95 07/18/19 18:15 98.0 F 90 14 117/73 96 07/18/19 17:00 88 14 132/78 07/18/19 16:00 97.6 F 89 14 122/75 95 07/18/19 15:00 80 14 122/74 09/23/19 14:00 81 14 120/71 09/23/19 13:00 87 14 127/77 07/18/19 12:00 97.8 F 74 14 155/95 95 07/18/19 11:00 71 14 150/86 07/18/19 10:00 97.8 F 71 14 142/86 94 Intake and Output 07/18/19 07/19/19 07/19/19 23:59 07:59 15:59 Intake Total 2300 / 2700 900 / 900 Output Total 5525 / 75868 2900 / 3700 800 / 3700 Balance -3225 / -7730 -2000 / -2800 -800 / -2800 Intake: IV Fluids 1600 / 1700 500 / 500 Magnesium Sulfate Premix 20 gm/ 500 / 500 500 / 500 500mL 20 gm In 500 ml @ 2 GM/HR 50 mls/hr IVC .Q10H [facility] Rx#: [id number] Pitocin 20 unit In 1,000 ml @ 1000 / 1000 125 mls/hr IVC .Q8H [facility] Rx#: [id number] Ancef 2,000 MG In 0.9 % Sodium 100 / 200 Chloride 100 ML @ 200 mls/hr IVP Q8HR [facility] Rx#:[id number] Oral 700 / 1000 400 / 400 Output: Urine 4075 / 6465 2250 / 2650 400 / 2650 Catheter 1450 / 3965 650 / 1050 400 / 1050 - Exam Lungs: bilateral: normal Chest: Normal S1, Normal S2 Extremities: Present: normal Abdomen: Present: normal appearance, soft Incision: Present: normal, dry, dressed Uterus: Present: normal, firm Fundal Height: 2 - Labs Labs: Laboratory Results - last 24 hr 07/18/19 07/18/19 07/19/19 10:20 10:20 06:24 WBC 13.3 H 11.0 RBC 4.16 4.15 Hgb 13.0 13.0 Hct 37.5 37.5 MCV 90.1 90.4 MCH 31.3 31.3 MCHC 34.7 34.7 RDW 12.6 12.7 Plt Count 160 177 MPV 12.3 11.6 Immature Gran % 0.7 0.5 Seg Neutrophils % 73.1 69.8 Lymphocytes % 19.7 21.7 Monocytes % 5.5 6.7 Eosinophils % 0.8 1.1 Basophils % 0.2 0.2 Neutrophils # 9.7 H 7.6 Lymphocytes # 2.6 2.4 Monocytes # 0.7 0.7 Eosinophils # 0.1 0.1 Basophils # 0.0 0.0 BUN 6 Creatinine 0.63 Est GFR ( Amer) > 60 Est GFR (Non-Af Amer) > 60 BUN/Creatinine Ratio 10 Uric Acid 5.5 AST 20 ALT 7 Lactate Dehydrogenase 184
[2019-07-19] MEDS: Simethicone 80 MG TAB.CHEW PO PRN (20:18)
[2019-07-20] MEDS: Ibuprofen 600 MG TABLET PO PRN ×3 (04:40→22:26)
[2019-07-20] MEDS: metroNIDAZOLE 500 MG TABLET PO SCH ×2 (09:58→22:25)
[2019-07-20] MEDS: Prenatal Vit/FA 1 EACH TABLET PO SCH (09:59)
--- NOTE | 2019-07-20 15:45 | Discharge Summary ---
Date of Encounter: 07/20/19 Time of Encounter: 15:43 - Discharge Medications Prescriptions: No Action Aspirin 81 mg PO DAILY Vit 108/Iron/Folic AC [ One Tablet] 1 each PO DAILY Labetalol [Trandate] 300 mg PO BID Home Medications: Aspirin 81 mg PO DAILY 05/19/19 [History] Vit 108/Iron/Folic AC [ One Tablet] 1 each PO DAILY 05/19/19 [History] Labetalol [Trandate] 300 mg PO BID 07/17/19 [History] Allergies/Adverse Reactions: Allergy/AdvReac Type Severity Reaction Status Date / Time No Known Allergies Allergy Verified 06/19/19 12:21 Data Procedures and tests throughout hospitalization: Laboratory Tests 07/17/19 07/17/19 07/17/19 23:31 23:31 23:31 WBC 12.4 H RBC 4.19 Hgb 13.1 Hct 36.9 MCV 88.1 MCH 31.3 MCHC 35.5 RDW 12.4 Plt Count 187 MPV 12.3 Immature Gran % 1.0 Seg Neutrophils % 67.5 Lymphocytes % 24.3 Monocytes % 5.9 Eosinophils % 1.1 Basophils % 0.2 Neutrophils # 8.4 Lymphocytes # 3.0 Monocytes # 0.7 Eosinophils # 0.1 Basophils # 0.0 BUN 7 Creatinine 0.57 L Est GFR ( Amer) > 60 Est GFR (Non-Af Amer) > 60 BUN/Creatinine Ratio 12 Uric Acid 5.5 AST 14 ALT 8 Lactate Dehydrogenase 144 Urine Creatinine 152 Protein/Creatinin Ratio 0.12 Urine Total Protein 18 H Urine Opiates Screen Ur Buprenorphine Scrn Ur Barbiturates Screen Ur Phencyclidine Scrn Ur Amphetamines Screen U Benzodiazepines Scrn Urine Cocaine Screen U Marijuana (THC) Screen Ur Drug Screen Interp 07/17/19 07/18/19 07/18/19 23:31 10:20 10:20 WBC 13.3 H RBC 4.16 Hgb 13.0 Hct 37.5 MCV 90.1 MCH 31.3 MCHC 34.7 RDW 12.6 Plt Count 160 MPV 12.3 Immature Gran % 0.7 Seg Neutrophils % 73.1 Lymphocytes % 19.7 Monocytes % 5.5 Eosinophils % 0.8 Basophils % 0.2 Neutrophils # 9.7 H Lymphocytes # 2.6 Monocytes # 0.7 Eosinophils # 0.1 Basophils # 0.0 BUN 6 Creatinine 0.63 Est GFR ( Amer) > 60 Est GFR (Non-Af Amer) > 60 BUN/Creatinine Ratio 10 Uric Acid 5.5 AST 20 ALT 7 Lactate Dehydrogenase 184 Urine Creatinine Protein/Creatinin Ratio Urine Total Protein Urine Opiates Screen Negative Ur Buprenorphine Scrn Negative Ur Barbiturates Screen Negative Ur Phencyclidine Scrn Negative Ur Amphetamines Screen Negative U Benzodiazepines Scrn Negative Urine Cocaine Screen Negative U Marijuana (THC) Screen Negative Ur Drug Screen Interp See Below 07/19/19 06:24 WBC 11.0 RBC 4.15 Hgb 13.0 Hct 37.5 MCV 90.4 MCH 31.3 MCHC 34.7 RDW 12.7 Plt Count 177 MPV 11.6 Immature Gran % 0.5 Seg Neutrophils % 69.8 Lymphocytes % 21.7 Monocytes % 6.7 Eosinophils % 1.1 Basophils % 0.2 Neutrophils # 7.6 Lymphocytes # 2.4 Monocytes # 0.7 Eosinophils # 0.1 Basophils # 0.0 BUN Creatinine Est GFR ( Amer) Est GFR (Non-Af Amer) BUN/Creatinine Ratio Uric Acid AST ALT Lactate Dehydrogenase Urine Creatinine Protein/Creatinin Ratio Urine Total Protein Urine Opiates Screen Ur Buprenorphine Scrn Ur Barbiturates Screen Ur Phencyclidine Scrn Ur Amphetamines Screen U Benzodiazepines Scrn Urine Cocaine Screen U Marijuana (THC) Screen Ur Drug Screen Interp Date of admission: 07/18/19 00:19 Primary care physician: PCP NONE Discharging clinician: Debbie Camarena Anticipated date of discharge: 07/20/19 - Patient Status Disposition: Home, Self-Care - Discharge Instructions Follow Up With: NONE,PCP [Primary Care Provider] - Hospital Course Time Attestation: Total time spent providing and/or coordinating discharge services: - VTE Reasons for not Prescribing Prophylaxis: Treatment not Indicated - Low risk for VTE Documentation of Mechanical Device: Intermittent pneumatic compression device Exam - Constitutional Vitals: Temp Pulse Resp BP Pulse Ox 98.4 F 77 16 147/106 96 07/20/19 08:32 07/20/19 08:32 07/20/19 08:32 07/20/19 08:32 07/20/19 08:32
--- NOTE | 2019-07-20 16:32 | OB/GYN Progress Note ---
Date of Encounter: 07/20/19 Time of Encounter: 16:30 - Assessment and Plan (1) Status post repeat low transverse section Current Visit: Yes Status: Acute post op doing very well without surgical complications (2) Severe pre-eclampsia Current Visit: Yes Status: Acute asymptomatic blood pressure increase. plan to repeat lab evaluation. add procardia. continue hospital monitoring of blood pressures. Qualifiers: Trimester: unspecified trimester Qualified Code(s): O14.10 - Severe pre- eclampsia, unspecified trimester Subjective - Subjective Principal diagnosis: , complicated by preeclampsia and delivered at 35 week Interval history: patient feels well. no signs or symptoms of preeclampsia. no headache or abdominal pain. no excessive swelling or hyperreflexia. blood pressures have been well controlled on 300mg labatelol until this afternoon. now she has asymptomatic elevation in pressures. Patient reports: appetite normal, voiding normally, ambulating normally : doing well Objective - Latest Vital Signs Latest vital signs: Vital Signs Temp Pulse Resp BP Pulse Ox 07/20/19 15:46 98.1 F 74 16 155/103 97 07/20/19 08:32 98.4 F 77 16 147/106 96 07/20/19 04:40 98.0 F 69 14 134/81 96 Intake and Output 07/20/19 07/20/19 07/20/19 07:59 15:59 23:59 Intake Total 700 / 700 Output Total 400 / 400 Balance 300 / 300 Intake: Oral 700 / 700 Output: Urine 400 / 400 Other: Meal Breakfast Percent of Meal Consumed 50% Stool Size Moderate Stool Consistency soft Stool Characteristics Normal for Patient Stool Color Brown - Exam Extremities: Present: normal Abdomen: Present: soft Uterus: Present: firm
[2019-07-20] MEDS: NIFEdipine XL (24 HR) 30 MG TAB.ER.24 PO SCH (17:08)
[2019-07-20 18:04] LABS: Basophils % 0.3 %; Eosinophils # 0.2 K/mcL (0.0-0.6); Hematocrit 35.5 % (35.3-44.9); Immature Granulocytes % 0.5 % (0-4); Lymphocytes % 25.5 %; Mean Corpuscular HGB Conc 33.8 g/dL (31.6-35.5); Mean Corpuscular Hemoglobin 31.2 pg (28.0-33.3); Mean Corpuscular Volume 92.2 fL (83.0-100.0); Mean Platelet Volume 11.6 fL (9.4-12.4); Monocytes # 0.5 K/mcL (0.0-1.3); Monocytes % 5.8 %; Neutrophils # 5.3 K/mcL (1.6-8.9); Platelet Count 178 K/mcL (140-400); Red Blood Count 3.85 M/mcL (3.82-4.97); Segmented Neutrophils % 65.9 %
[2019-07-20 18:22] LABS: Alanine Aminotransferase 12 Units/L (7-52); Aspartate Amino Transferase 23 Units/L (13-39); BUN/Creatinine Ratio 12 (6-26); Blood Urea Nitrogen 8 mg/dL (6-20); Lactate Dehydrogenase 167 Units/L (140-271); eGFR For African Americans > 60 (> 60); eGFR For Non-African Americans > 60 (> 60)
[2019-07-20] MEDS: Simethicone 80 MG TAB.CHEW PO PRN (22:26)
[2019-07-21] MEDS: Prenatal Vit/FA 1 EACH TABLET PO SCH (07:55)
[2019-07-21] MEDS: NIFEdipine XL (24 HR) 30 MG TAB.ER.24 PO SCH (07:55)
[2019-07-21] MEDS: metroNIDAZOLE 500 MG TABLET PO SCH (07:55)
--- NOTE | 2019-07-21 09:02 | Discharge Summary ---
Date of Encounter: 07/21/19 Time of Encounter: 08:59 - Discharge Diagnosis (1) Breast feeding status of mother Priority: Secondary Status: Acute (2) Severe pre-eclampsia Priority: Primary Status: Acute Comments: Will discharge home on procardia and labatelol. BP check in 1 week Qualifiers: Trimester: unspecified trimester Qualified Code(s): O14.10 - Severe pre- eclampsia, unspecified trimester (3) Status post repeat low transverse section Priority: Primary Status: Acute Comments: Stable, meeting all PP milestones, BP stable on medication, breast feeding, in nursery, desires discharge - Discharge Medications Prescriptions: New metroNIDAZOLE [Flagyl] 500 mg PO BID #4 tablet Labetalol [Trandate] 300 mg PO BID #60 tablet NIFEdipine XL (24 HR) [Procardia XL] 30 mg PO DAILY #30 tab.er.24 Ibuprofen [Motrin] 600 mg PO Q6HR PRN tablet PRN Reason: Cramping Simethicone [Gas-X] 80 mg PO TID PRN tab.chew PRN Reason: Dyspepsia Continued Vit 108/Iron/Folic AC [ One Tablet] 1 each PO DAILY Labetalol [Trandate] 300 mg PO BID Discontinued Aspirin 81 mg PO DAILY Home Medications: Vit 108/Iron/Folic AC [ One Tablet] 1 each PO DAILY 05/19/19 [History] Labetalol [Trandate] 300 mg PO BID 07/17/19 [History] Ibuprofen [Motrin] 600 mg PO Q6HR PRN tablet 07/21/19 [Rx] Labetalol [Trandate] 300 mg PO BID #60 tablet 07/21/19 [Rx] NIFEdipine XL (24 HR) [Procardia XL] 30 mg PO DAILY #30 tab.er.24 07/21/19 [Rx] Simethicone [Gas-X] 80 mg PO TID PRN tab.chew 07/21/19 [Rx] metroNIDAZOLE [Flagyl] 500 mg PO BID #4 tablet 07/21/19 [Rx] Allergies/Adverse Reactions: Allergy/AdvReac Type Severity Reaction Status Date / Time No Known Allergies Allergy Verified 06/19/19 12:21 Data Procedures and tests throughout hospitalization: Laboratory Tests 07/17/19 07/17/19 07/17/19 23:31 23:31 23:31 WBC 12.4 H RBC 4.19 Hgb 13.1 Hct 36.9 MCV 88.1 MCH 31.3 MCHC 35.5 RDW 12.4 Plt Count 187 MPV 12.3 Immature Gran % 1.0 Seg Neutrophils % 67.5 Lymphocytes % 24.3 Monocytes % 5.9 Eosinophils % 1.1 Basophils % 0.2 Neutrophils # 8.4 Lymphocytes # 3.0 Monocytes # 0.7 Eosinophils # 0.1 Basophils # 0.0 BUN 7 Creatinine 0.57 L Est GFR ( Amer) > 60 Est GFR (Non-Af Amer) > 60 BUN/Creatinine Ratio 12 Uric Acid 5.5 AST 14 ALT 8 Lactate Dehydrogenase 144 Urine Creatinine 152 Protein/Creatinin Ratio 0.12 Urine Total Protein 18 H Urine Opiates Screen Ur Buprenorphine Scrn Ur Barbiturates Screen Ur Phencyclidine Scrn Ur Amphetamines Screen U Benzodiazepines Scrn Urine Cocaine Screen U Marijuana (THC) Screen Ur Drug Screen Interp 07/17/19 07/18/19 07/18/19 23:31 10:20 10:20 WBC 13.3 H RBC 4.16 Hgb 13.0 Hct 37.5 MCV 90.1 MCH 31.3 MCHC 34.7 RDW 12.6 Plt Count 160 MPV 12.3 Immature Gran % 0.7 Seg Neutrophils % 73.1 Lymphocytes % 19.7 Monocytes % 5.5 Eosinophils % 0.8 Basophils % 0.2 Neutrophils # 9.7 H Lymphocytes # 2.6 Monocytes # 0.7 Eosinophils # 0.1 Basophils # 0.0 BUN 6 Creatinine 0.63 Est GFR ( Amer) > 60 Est GFR (Non-Af Amer) > 60 BUN/Creatinine Ratio 10 Uric Acid 5.5 AST 20 ALT 7 Lactate Dehydrogenase 184 Urine Creatinine Protein/Creatinin Ratio Urine Total Protein Urine Opiates Screen Negative Ur Buprenorphine Scrn Negative Ur Barbiturates Screen Negative Ur Phencyclidine Scrn Negative Ur Amphetamines Screen Negative U Benzodiazepines Scrn Negative Urine Cocaine Screen Negative U Marijuana (THC) Screen Negative Ur Drug Screen Interp See Below 07/19/19 07/20/19 07/20/19 06:24 17:50 17:50 WBC 11.0 8.0 RBC 4.15 3.85 Hgb 13.0 12.0 Hct 37.5 35.5 MCV 90.4 92.2 MCH 31.3 31.2 MCHC 34.7 33.8 RDW 12.7 13.0 Plt Count 177 178 MPV 11.6 11.6 Immature Gran % 0.5 0.5 Seg Neutrophils % 69.8 65.9 Lymphocytes % 21.7 25.5 Monocytes % 6.7 5.8 Eosinophils % 1.1 2.0 Basophils % 0.2 0.3 Neutrophils # 7.6 5.3 Lymphocytes # 2.4 2.0 Monocytes # 0.7 0.5 Eosinophils # 0.1 0.2 Basophils # 0.0 0.0 BUN 8 Creatinine 0.65 Est GFR ( Amer) > 60 Est GFR (Non-Af Amer) > 60 BUN/Creatinine Ratio 12 Uric Acid 6.0 AST 23 ALT 12 Lactate Dehydrogenase 167 Urine Creatinine Protein/Creatinin Ratio Urine Total Protein Urine Opiates Screen Ur Buprenorphine Scrn Ur Barbiturates Screen Ur Phencyclidine Scrn Ur Amphetamines Screen U Benzodiazepines Scrn Urine Cocaine Screen U Marijuana (THC) Screen Ur Drug Screen Interp Labs on day of discharge: Labs from last 24 hours 07/20/19 07/20/19 17:50 17:50 WBC 8.0 RBC 3.85 Hgb 12.0 Hct 35.5 MCV 92.2 MCH 31.2 MCHC 33.8 RDW 13.0 Plt Count 178 MPV 11.6 Immature Gran % 0.5 Seg Neutrophils % 65.9 Lymphocytes % 25.5 Monocytes % 5.8 Eosinophils % 2.0 Basophils % 0.3 Neutrophils # 5.3 Lymphocytes # 2.0 Monocytes # 0.5 Eosinophils # 0.2 Basophils # 0.0 BUN 8 Creatinine 0.65 Est GFR ( Amer) > 60 Est GFR (Non-Af Amer) > 60 BUN/Creatinine Ratio 12 Uric Acid 6.0 AST 23 ALT 12 Lactate Dehydrogenase 167 Date of admission: 07/18/19 00:19 Primary care physician: PCP NONE Discharging clinician: Purnima Ugalde Anticipated date of discharge: 07/21/19 - Patient Status Disposition: Home, Self-Care Condition: Good Functional capacity at discharge: independent ambulation Overall status at discharge: patient is progressing back to baseline - Discharge Instructions Follow Up With: NONE,PCP [Primary Care Provider] - Joby Mueller DO [Partnered Physician] - - Diet and Activity Activity: resume usual activities as tolerated Diet: regular diet Hospital Course Reason for admission: IUP - , section, pre-eclampsia Delivery: section Episiotomy: none Laceration: none Other procedures: tubal ligation complications: none Discharge diagnosis: delivery, pre-eclampsia [place] baby: female Hospital course: Section - Date of procedure: 07/18/19 Preop diagnosis: desires sterilization, other (uncontrolled gestational hypertension) Post-op diagnosis: same Procedure: repeat low transverse, bilateral tubal ligation Surgeon: Heath Teran Blood Loss: 500 Was there an insurance sales assistant present: Yes Erosion Control Coordinator: Ldumila Shankar [employer] Technician: Brent Santiago Anesthesia Type: Spinal section complications: none Disposition: PACU Specimens: Placenta, Right tube segment, Left tube segment - (s) A Delivery Date: 07/18/19 Infant Delivery Time: : Presentation: vertex Position: OA Route of delivery: other Gender: Female Viability: Viable Pounds: 4 Ounces: 4 Gram Weight: 1.925 kg at 1 minute: 8 at 5 minutes: 9 Specimens collected: cord blood Placenta: partial extraction Cord: 3 umbilical vessels Stable in PP and appropriate for discharge declines narcotic rx Time Attestation: Total time spent providing and/or coordinating discharge services: Time Spent: Less than 30 minutes - VTE Reasons for not Prescribing Prophylaxis: Treatment not Indicated - Low risk for VTE Documentation of Mechanical Device: Intermittent pneumatic compression device Exam - Constitutional Vitals: Temp Pulse Resp BP Pulse Ox 97.6 F 89 16 146/102 98 07/21/19 07:54 07/21/19 04:55 07/21/19 07:54 07/21/19 07:54 07/21/19 07:54 General appearance IM: A&O X 3 - Respiratory Respiratory exam: Present: CTAB - Cardiovascular Cardiovascular exam IM: Present: RRR - GI/Abdominal GI/Abdominal exam IM: soft Incision: intact - Uterine Tone: Firm Uterus Position: At Umbilicus - Extremities Exam Extremities exam IM: Present: normal capillary refill, normal inspection, pedal edema - Neurological Exam Neurological exam: normal gait, oriented X3 - Psychiatric Additional comments: reports good mood
[2019-07-21 09:29] VITALS: BP 129/89
== END 2019-07-21 12:08 | disposition home or self-care (01) | DRG 785 ==
LOC: 1NENULAB → 1NENUOBS 07:25
PROVIDERS: ADMIT Advanced Practice Midwife; ATTEND Advanced Practice Midwife